=== PATIENT | female | born 1970 | race Caucasian/White ===

== ENCOUNTER 2020-08-06 15:10 | Day surgery (SDCO) | payer OTHER ==
[~2020-08-06] VITALS: Ht 165.1 cm; Wt 104.9 kg
[~2020-08-06 15:10] MED LIST: AUGMENTIN 875-1 EACH PO; CIPRO500 MG PO; LACTINEX1 EACH PO; VENLAFAXINE H37.5 M1 PO
[2020-08-06 17:14] LABS: BILIRUBIN NEGATIVE (NEGATIVE); BLOOD TRACE-INTACT Ery/uL (NEGATIVE); CLARITY HAZY (CLEAR); COLOR YELLOW (YELLOW); GLUCOSE (U) NORMAL (NORMAL); LEUKOCYTES TRACE Leu/uL (NEGATIVE); NITRITE NEGATIVE (NEGATIVE); PROTEIN NEGATIVE (NEGATIVE); SPECIFIC GRAVITY 1.025 (1.001-1.030); UROBILINOGEN 0.2 mg/dL (0.2-1.0)
[2020-08-06 17:20] LABS: BACTERIA 1+
[2020-08-06 17:21] LABS: MUCOUS MODERATE; SQUAMOUS EPITHELIAL CELLS >50
[2020-08-06 17:25] LABS: BASOPHIL 0.4 % (0-2); EOSINOPHIL 0.7 % (0-5); HCT 43.5 % (37.0-47.0); HGB 14.5 g/dl (12.5-16.0); LYMPHOCYTE 11.6 % (15-48); MCH 30.3 pg (25.0-31.0); MCHC 33.3 g/dL (32.0-36.0); MCV 90.8 fL (78.0-100.0); MPV 9.5 fL (6.0-9.5); NEUTROPHIL 77.9 % (41-80); NRBC 0; PLT 339 K/uL (150-400); RBC 4.79 M/uL (4.20-5.40); RDW 13.1 % (11.5-14.0); WBC 12.3 K/uL (4.0-10.5)
[2020-08-06 17:42] LABS: ALBUMIN 3.1 g/dL (3.4-5.0); BILIRUBIN - TOTAL 0.5 mg/dL (0.2-1.0); BUN/CREAT RATIO (CALC) 12.9 RATIO; CREATININE 0.62 mg/dL (0.51-0.95); GLOBULIN (CALCULATION) 3.8 g/dL; POTASSIUM 3.2 mmol/L (3.5-5.1); TOTAL PROTEIN 6.9 g/dL (6.4-8.2)
[2020-08-06 17:52] LABS: LACTIC ACID 1.5 mmol/L (0.4-1.9)
[2020-08-06 20:08] LABS: MAGNESIUM 1.7 mg/dL (1.8-2.4); PHOSPHORUS 2.7 mg/dL (2.6-4.7)
[2020-08-07 06:00] LABS: BASOPHIL 0.3 % (0-2); EOSINOPHIL 1.4 % (0-5); HCT 41.6 % (37.0-47.0); HGB 13.6 g/dl (12.5-16.0); MCHC 32.7 g/dL (32.0-36.0); MCV 91.8 fL (78.0-100.0); MONOCYTE 10.4 % (0-12); MPV 9.6 fL (6.0-9.5); NEUTROPHIL 71.6 % (41-80); NRBC 0; PLT 316 K/uL (150-400); RBC 4.53 M/uL (4.20-5.40); RDW 13.1 % (11.5-14.0); WBC 9.6 K/uL (4.0-10.5)
[2020-08-07 06:22] LABS: ALBUMIN 3.4 g/dL (3.4-5.0); BILIRUBIN - TOTAL 0.7 mg/dL (0.2-1.0); BUN/CREAT RATIO (CALC) 13.8 RATIO; CREATININE 0.58 mg/dL (0.51-0.95); GLOBULIN (CALCULATION) 4.1 g/dL; POTASSIUM 3.6 mmol/L (3.5-5.1); TOTAL PROTEIN 7.5 g/dL (6.4-8.2)
[2020-08-07 06:28] LABS: MAGNESIUM 2.6 mg/dL (1.8-2.4)
== END 2020-08-07 15:26 | disposition home or self-care (01) ==
LOC: FER 15:10 → FMS 20:00
PROVIDERS: Nurse Practitioner; Nurse Practitioner Family; ADMIT Internal Medicine
DX: K56.600 Partial intestinal obstruction, unspecified as to cause (principal); R10.84 Generalized abdominal pain; J30.9 Allergic rhinitis, unspecified; G89.29 Other chronic pain; M25.511 Pain in right shoulder; N18.9 Chronic kidney disease, unspecified; N20.0 Calculus of kidney; N28.1 Cyst of kidney, acquired; K57.30 Diverticulosis of large intestine without perforation or abscess without bleeding; Z79.899 Other long term (current) drug therapy; Z20.822 Contact with and (suspected) exposure to COVID-19
CPT/HCPCS: 36415; 74250; 80053; 81001; 83605; 83735; 84100; 85025; 87088; 94010; C9113; G0378; J1885; J2270; J2405; J3475; J3480; J7030; J7120; Q9967; U0002